=== PATIENT | female | born 1965 | race Caucasian/White ===

== ENCOUNTER 2016-08-27 18:16 | Inpatient (IN) | payer MEDICAID ==
[~2016-08-27] VITALS: Ht 167.6 cm; Wt 96.1 kg
[~2016-08-27 18:16] MED LIST: IMITREX
[2016-08-27 19:27] LABS: Partial Thromboplastin Time 33.5 sec (22.64-33.71)
[2016-08-27 19:34] LABS: Mean Corpuscular Hemoglobin 29.4 pg (28.0-32.0); SUSPECT VIEW TRANSMISSION; White Blood Cell 3.2 10^3/uL (4.4-10.8)
[2016-08-27] MEDS ORDERED: SODIUM CHLORIDE 0.9% 1,000 ML IVB ONE (19:38)
[2016-08-27 19:40] LABS: Albumin 2.3 g/dL (3.4-5.0); Alkaline Phosphatase 61 U/L (45-117); Anion Gap 14 (5-15); Aspartate Aminotransferase 57 U/L (15-37); BUN/Creatinine Ratio 24.8; Bilirubin, Total 2.2 mg/dL (0.2-1.0); Blood Urea Nitrogen 34 mg/dL (7-18); Carbon Dioxide 22 mmol/L (21-32); Chloride 102 mmol/L (98-107); GFR African American 52 mL/min; GFR Non-African American 43 mL/min; Glucose 105 mg/dL (74-106); Lactic Acid 4.4 mmol/L (0.4-2.0); Potassium 3.9 mmol/L (3.5-5.1); Sodium 138 mmol/L (136-145); Total Protein 7.8 g/dL (6.4-8.2)
[2016-08-27 19:42] LABS: REFLEX LACTIC ACID YES OR NO YES
[2016-08-27 19:43] LABS: Hemoglobin 14.3 g/dL (12.2-16.2); Mean Corpuscular Hgb Conc. 34.1 g/dL (32.0-36.0); Mean Corpuscular Volume 86.1 fL (80.0-100.0); Mean Platelet Volume 11.2 fL (7.4-10.4); Platelet Count (auto) 97 10^3/uL (140-450); Red Cell Distribution Width 15.8 % (11.6-16.0)
[2016-08-27 19:45] LABS: Metamyelocytes % 0; Myelocytes % 0; Promyelocytes % 0; Reactive Lymphocytes 0
[2016-08-27] MEDS ORDERED: KETOROLAC TROMETH 30 MG/ML 1ML VIAL IV ONE (19:45)
[2016-08-27] MEDS ORDERED: cefTRIAXone 1GM/50ML D5W 50 ML IV ONE (19:45)
[2016-08-27 20:05] LABS: Platelet Estimate Decreased
[2016-08-27 20:09] LABS: Polychromasia Slight
[2016-08-27 20:10] LABS: Giant Platelets Few
[2016-08-27 20:21] LABS: INR 1.52 (0.9-1.15); Prothrombin Time 15.7 sec (9.37-12.3)
[2016-08-27 21:41] LABS: REFLEX LACTIC ACID YES OR NO NO
[2016-08-28] VITALS (8 sets, daily range): BP systolic 80–105; BP diastolic 40–64
[2016-08-28] MEDS ORDERED: MORPHINE SULF INJ 2 MG/ML SYRINGE 1ML ONE (00:07)
[2016-08-28] MEDS ORDERED: HYDROcodone-ACET 5/325MG TAB PO PRN ×2 (00:15)
[2016-08-28] MEDS ORDERED: ONDANSETRON HCL 4 MG/2 ML VIAL IV PRN ×3 (00:15)
[2016-08-28] MEDS ORDERED: MORPHINE SULF INJ 2 MG/ML SYRINGE 1ML IV PRN ×2 (00:15)
[2016-08-28] MEDS ORDERED: ACETAMINOPHEN 325 MG TAB PO PRN ×3 (00:15)
[2016-08-28] MEDS ORDERED: TEMAZEPAM 15 MG CAP PO PRN ×3 (00:15)
[2016-08-28] MEDS ORDERED: AZITHROMYCIN 500MG/D5W 250ML 250 ML IV ONE ×3 (00:15)
[2016-08-28] MEDS ORDERED: LISI2.5T47 PO (01:29)
[2016-08-28] MEDS ORDERED: methylPREDNISolone SOD SUCC 125 MG/2 ML VL IV ONE (04:45)
[2016-08-28] MEDS ORDERED: methylPREDNISolone SOD SUCC 125 MG/2 ML VL IM ONE (05:45)
[2016-08-28] MEDS: IPRATROPIUM BROM 0.5 MG/2.5ML INH SOL NEB PRN ×3 (07:41→14:30)
[2016-08-28] MEDS: ALBUTEROL SULF 2.5 MG/0.5ML(0.5%) NEB SOLN NEB PRN ×3 (07:41→14:30)
[2016-08-28] MEDS ORDERED: cefTRIAXone 1GM/50ML D5W 50 ML IV SCH ×3 (09:00→20:00)
[2016-08-28 09:01] LABS: Urine Blood Negative /uL (Negative); Urine Color Brown (Yellow); Urine Glucose Normal (Normal); Urine Hyaline Cast MOD /lpf (0 - 2); Urine Ketone Negative (Negative); Urine Mucus FEW (None Seen); Urine Nitrite Negative (Negative); Urine RBC 7 /hpf (0 - 4); Urine Squamous Epithelial Cell FEW /hpf (<5); Urine pH 5.5 (5.0-8.0)
[2016-08-28 09:07] LABS: Urine Bilirubin Negative (Negative)
[2016-08-28] MEDS ORDERED: ENOXAPARIN SOD 40 MG/0.4 ML SYRINGE SC SCH ×2 (10:00)
[2016-08-28] MEDS ORDERED: AZITHROMYCIN 500MG/D5W 250ML 250 ML IV SCH ×3 (10:00→22:00)
[2016-08-28] MEDS ORDERED: LISINOPRIL 5 MG TAB PO SCH ×3 (10:00)
[2016-08-28] MEDS ORDERED: SILVER SULFADIAZINE 1 % TOPICAL CREAM 50GM TOP SCH ×2 (10:00)
[2016-08-28] MEDS ORDERED: HCTZ 25 MG TAB PO SCH ×3 (10:00)
[2016-08-28] MEDS ORDERED: FAMOTIDINE 20 MG TAB PO SCH ×2 (10:00)
[2016-08-28] MEDS: ENOXAPARIN SOD 40 MG/0.4 ML SYRINGE SC SCH ×2 (10:00→11:05)
[2016-08-28] MEDS: SILVER SULFADIAZINE 1 % TOPICAL CREAM 50GM TOP SCH (11:05)
[2016-08-28] MEDS: FAMOTIDINE 20 MG TAB PO SCH ×2 (11:06→22:00)
[2016-08-28] MEDS: MORPHINE SULF INJ 2 MG/ML SYRINGE 1ML IV PRN ×2 (11:21→20:30)
[2016-08-28] MEDS ORDERED: VANCOMYCIN 1GM/250ML D5W 250 ML IV ONE (13:15)
[2016-08-28] MEDS ORDERED: VANCOMYCIN PER PHARMACY 0 MG IV SCH (13:15)
[2016-08-28] MEDS: LEVOFLOXACIN 500MG 100 ML IV SCH (13:36)
[2016-08-28] MEDS: SODIUM CHLORIDE 0.9% 1,000 ML IV SCH ×2 (13:37→23:15)
[2016-08-28] MEDS ORDERED: SODIUM CHLORIDE 0.9% 2,000 ML IV ONE (14:45)
[2016-08-28] MEDS ORDERED: VANCOMYCIN 1,250 MG in D5W 5% 250 ML IV SCH (15:00)
[2016-08-28 16:24] LABS: DEFINITIVE VIEW TRANSMISSION; Hematocrit 46.2 % (36.0-46.0); Hemoglobin 15.1 g/dL (12.2-16.2); Mean Corpuscular Hemoglobin 29.3 pg (28.0-32.0); Mean Corpuscular Hgb Conc. 32.8 g/dL (32.0-36.0); Mean Corpuscular Volume 89.4 fL (80.0-100.0); Mean Platelet Volume 11.3 fL (7.4-10.4); Platelet Count (auto) 43 10^3/uL (140-450); Red Cell Distribution Width 17.2 % (11.6-16.0); SUSPECT VIEW TRANSMISSION; White Blood Cell 7.3 10^3/uL (4.4-10.8)
[2016-08-28 16:34] LABS: Calcium 7.5 mg/dL (8.5-10.1); Potassium 4.2 mmol/L (3.5-5.1)
[2016-08-28 16:37] LABS: BUN/Creatinine Ratio 26.5
[2016-08-28 16:45] LABS: Metamyelocytes % 0; Myelocytes % 0; Promyelocytes % 0; Reactive Lymphocytes 0
[2016-08-28 17:26] LABS: Platelet Estimate Decreased
[2016-08-28 17:29] LABS: Ovalocytes FEW
[2016-08-28] MEDS: VANCOMYCIN 1,250 MG in D5W 5% 250 ML IV SCH (18:00)
[2016-08-29] VITALS: BP 112/66
[2016-08-29] MEDS: ALBUTEROL SULF 2.5 MG/0.5ML(0.5%) NEB SOLN NEB PRN ×2 (00:38→11:04)
[2016-08-29] MEDS: IPRATROPIUM BROM 0.5 MG/2.5ML INH SOL NEB SCH ×4 (00:38→18:10)
[2016-08-29] MEDS: MORPHINE SULF INJ 2 MG/ML SYRINGE 1ML IV PRN ×4 (02:40→20:37)
[2016-08-29 04:00] VITALS: BP 111/60
[2016-08-29 07:42] LABS: Partial Thromboplastin Time 40.9 sec (22.64-33.71)
[2016-08-29 07:51] LABS: INR 1.51 (0.9-1.15); Prothrombin Time 15.6 sec (9.37-12.3)
[2016-08-29 07:53] LABS: DEFINITIVE VIEW TRANSMISSION; Hematocrit 37.7 % (36.0-46.0); Hemoglobin 12.8 g/dL (12.2-16.2); Mean Corpuscular Hemoglobin 29.3 pg (28.0-32.0); Mean Corpuscular Hgb Conc. 33.8 g/dL (32.0-36.0); Mean Corpuscular Volume 86.7 fL (80.0-100.0); Mean Platelet Volume 11.9 fL (7.4-10.4); Platelet Count (auto) 65 10^3/uL (140-450); Red Cell Distribution Width 16.3 % (11.6-16.0); SUSPECT VIEW TRANSMISSION; White Blood Cell 12.7 10^3/uL (4.4-10.8)
[2016-08-29 07:58] LABS: Metamyelocytes % 0; Myelocytes % 0; Promyelocytes % 0; Reactive Lymphocytes 0
[2016-08-29 08:00] VITALS: BP 117/74
[2016-08-29 08:01] LABS: Albumin 1.8 g/dL (3.4-5.0); BUN/Creatinine Ratio 41.4; Bilirubin, Total 1.1 mg/dL (0.2-1.0); Calcium 8.3 mg/dL (8.5-10.1); Magnesium 2.1 mg/dL (1.6-2.6); Total Protein 6.9 g/dL (6.4-8.2)
[2016-08-29] MEDS ORDERED: SODIUM CHLORIDE 0.9% 1,000 ML IV ONE (10:00)
[2016-08-29] MEDS: LISINOPRIL 5 MG TAB PO SCH (10:00)
[2016-08-29] MEDS: ENOXAPARIN SOD 40 MG/0.4 ML SYRINGE SC SCH (10:00)
[2016-08-29 10:09] LABS: Giant Platelets Few; Large Platelets FEW; Ovalocytes FEW; Platelet Estimate Decreased
[2016-08-29] MEDS: FAMOTIDINE 20 MG TAB PO SCH ×2 (10:09→22:46)
[2016-08-29] MEDS: LEVOFLOXACIN 500MG 100 ML IV SCH (10:10)
[2016-08-29] MEDS: MUPIROCIN 2% OINT 22GM EACHNOSTRI SCH ×2 (10:12→22:00)
[2016-08-29] MEDS: SILVER SULFADIAZINE 1 % TOPICAL CREAM 50GM TOP SCH (10:13)
[2016-08-29] MEDS: SODIUM CHLORIDE 0.9% 1,000 ML IV SCH ×2 (11:00→20:00)
[2016-08-29 12:00] VITALS: BP 105/66
[2016-08-29] MEDS ORDERED: PHYTONADIONE ORAL Susp 10 mg/10ml PO ONE (13:45)
[2016-08-29] MEDS: guaiFENesin-DEXTROMETHORPHAN 5ML SYR PO PRN (14:36)
[2016-08-29 16:00] VITALS: BP 113/74
[2016-08-29] MEDS: VANCOMYCIN 1,250 MG in D5W 5% 250 ML IV SCH (16:52)
[2016-08-29 20:00] VITALS: BP 113/71
[2016-08-30] VITALS: BP 111/73
[2016-08-30] MEDS: HYDROcodone-ACET 5/325MG TAB PO PRN ×4 (00:42→22:00)
[2016-08-30 04:00] VITALS: BP 100/68
[2016-08-30] MEDS: SODIUM CHLORIDE 0.9% 1,000 ML IV SCH ×2 (06:00→16:00)
[2016-08-30] MEDS: guaiFENesin-DEXTROMETHORPHAN 5ML SYR PO PRN ×2 (06:34→12:54)
[2016-08-30] MEDS: ALBUTEROL SULF 2.5 MG/0.5ML(0.5%) NEB SOLN NEB PRN ×4 (06:55→23:50)
[2016-08-30] MEDS: IPRATROPIUM BROM 0.5 MG/2.5ML INH SOL NEB SCH ×4 (06:55→23:50)
[2016-08-30 09:02] LABS: Hematocrit 37.3 % (36.0-46.0); Hemoglobin 12.3 g/dL (12.2-16.2); Mean Corpuscular Hemoglobin 28.8 pg (28.0-32.0); Mean Corpuscular Volume 87.2 fL (80.0-100.0); Mean Platelet Volume 10.6 fL (7.4-10.4); Partial Thromboplastin Time 37.6 sec (22.64-33.71); Platelet Count (auto) 91 10^3/uL (140-450); Red Cell Distribution Width 16.4 % (11.6-16.0); SUSPECT VIEW TRANSMISSION; White Blood Cell 10.8 10^3/uL (4.4-10.8)
[2016-08-30 09:06] LABS: INR 1.37 (0.9-1.15); Prothrombin Time 14.1 sec (9.37-12.3)
[2016-08-30 09:11] LABS: BUN/Creatinine Ratio 55.6; Metamyelocytes % 0; Myelocytes % 0; Potassium 3.6 mmol/L (3.5-5.1); Promyelocytes % 0; Reactive Lymphocytes 0
[2016-08-30 09:20] LABS: Platelet Estimate Decreased
[2016-08-30 09:21] LABS: RBC Morphology Normal
[2016-08-30] MEDS: LISINOPRIL 5 MG TAB PO SCH (10:00)
[2016-08-30] MEDS: SILVER SULFADIAZINE 1 % TOPICAL CREAM 50GM TOP SCH (10:00)
[2016-08-30] MEDS: MUPIROCIN 2% OINT 22GM EACHNOSTRI SCH ×2 (10:12→22:00)
[2016-08-30] MEDS: FAMOTIDINE 20 MG TAB PO SCH ×2 (10:12→22:00)
[2016-08-30] MEDS: ENOXAPARIN SOD 40 MG/0.4 ML SYRINGE SC SCH (10:13)
[2016-08-30] MEDS: LEVOFLOXACIN 500MG 100 ML IV SCH (10:13)
[2016-08-30 16:00] VITALS: BP 101/71
[2016-08-30] MEDS ORDERED: FLUCONAZOLE 200MG/100ML 100 ML IV SCH (17:15)
[2016-08-30] MEDS: VANCOMYCIN 1,250 MG in D5W 5% 250 ML IV SCH (17:30)
[2016-08-30] MEDS ORDERED: ERTAPENEM SOD INJ 1 GM in SODIUM CHL 0.9% 50 ML IV SCH (18:30)
[2016-08-30 20:00] VITALS: BP 115/76
[2016-08-30] MEDS: FLUCONAZOLE 200MG/100ML 100 ML IV SCH (21:21)
[2016-08-30] MEDS: MEROPENEM 1GM IVPB 100 ML IV SCH (22:00)
[2016-08-31] VITALS (7 sets, daily range): BP systolic 103–139; BP diastolic 68–81
[2016-08-31] MEDS: SODIUM CHLORIDE 0.9% 1,000 ML IV SCH ×2 (02:00→09:49)
[2016-08-31] MEDS: guaiFENesin-DEXTROMETHORPHAN 5ML SYR PO PRN (03:30)
[2016-08-31] MEDS: HYDROcodone-ACET 5/325MG TAB PO PRN (03:30)
[2016-08-31] MEDS: MEROPENEM 1GM IVPB 100 ML IV SCH ×2 (06:50→13:33)
[2016-08-31] MEDS: IPRATROPIUM BROM 0.5 MG/2.5ML INH SOL NEB SCH ×2 (07:42→11:58)
[2016-08-31] MEDS: ALBUTEROL SULF 2.5 MG/0.5ML(0.5%) NEB SOLN NEB PRN (07:42)
[2016-08-31] MEDS: MUPIROCIN 2% OINT 22GM EACHNOSTRI SCH (09:49)
[2016-08-31] MEDS: SILVER SULFADIAZINE 1 % TOPICAL CREAM 50GM TOP SCH (09:49)
[2016-08-31] MEDS: FLUCONAZOLE 200MG/100ML 100 ML IV SCH (09:49)
[2016-08-31] MEDS: FAMOTIDINE 20 MG TAB PO SCH (09:49)
[2016-08-31] MEDS: ENOXAPARIN SOD 40 MG/0.4 ML SYRINGE SC SCH (09:49)
[2016-08-31] MEDS: LISINOPRIL 5 MG TAB PO SCH (09:51)
[2016-08-31 17:26] LABS: Basophils # (auto) 0 uL; Basophils % (auto) 0.2 % (0.0-2.0); Eosinophils # (auto) 0 uL; Eosinophils % (auto) 0.5 % (0.0-7.0); Hematocrit 38.3 % (36.0-46.0); Hemoglobin 12.6 g/dL (12.2-16.2); Lymphocytes # (auto) 0.7 uL; Lymphocytes % (auto) 7.5 % (10.0-50.0); Mean Corpuscular Hemoglobin 28.7 pg (28.0-32.0); Mean Corpuscular Hgb Conc. 32.9 g/dL (32.0-36.0); Mean Corpuscular Volume 87.3 fL (80.0-100.0); Monocytes # (auto) 0.7 uL; Monocytes % (auto) 7.7 % (0.0-12.0); Neutrophils # (auto) 7.6 uL; Neutrophils % (auto) 84.1 % (37.0-80.0); Platelet Count (auto) 85 10^3/uL (140-450); Red Cell Distribution Width 16.1 % (11.6-16.0); SUSPECT VIEW TRANSMISSION
[2016-08-31 17:42] LABS: Albumin 1.6 g/dL (3.4-5.0); BUN/Creatinine Ratio 35.6; Calcium 7.1 mg/dL (8.5-10.1); Potassium 3.7 mmol/L (3.5-5.1)
[2016-08-31 17:44] LABS: Bilirubin, Total 0.7 mg/dL (0.2-1.0); Total Protein 6.1 g/dL (6.4-8.2)
[2016-08-31] MEDS: VANCOMYCIN 1,250 MG in D5W 5% 250 ML IV SCH (19:00)
[2016-09-01] MEDS ORDERED: VANCOMYCIN 1,250 MG in D5W 5% 250 ML IV SCH (05:00)
[2016-09-01 14:28] LABS: Bilirubin, Direct 0.5 mg/dL (0-0.2)
== END 2016-08-31 20:37 | DRG 710 ==
LOC: ER 18:19 → TELE 18:20 → ER 08-28 → EAST 08-28 01:00 → DOU IN ICU 08-28 16:18
PROVIDERS: ADMIT Nurse Practitioner; ATTEND Internal Medicine
PROC: 02H633Z Insertion of Infusion Device into Right Atrium, Percutaneous Approach (ICD-10-PCS; principal; 2016-08-27)
DX: A40.9 Streptococcal sepsis, unspecified (principal); E43 Unspecified severe protein-calorie malnutrition; N17.9 Acute kidney failure, unspecified; J15.4 Pneumonia due to other streptococci; D70.9 Neutropenia, unspecified; C34.90 Malignant neoplasm of unspecified part of unspecified bronchus or lung; D69.6 Thrombocytopenia, unspecified; L03.115 Cellulitis of right lower limb; L03.116 Cellulitis of left lower limb; J44.9 Chronic obstructive pulmonary disease, unspecified; S81.802D Unspecified open wound, left lower leg, subsequent encounter; R53.81 Other malaise; I10 Essential (primary) hypertension; F17.210 Nicotine dependence, cigarettes, uncomplicated; B95.3 Streptococcus pneumoniae as the cause of diseases classified elsewhere; F41.9 Anxiety disorder, unspecified; R65.20 Severe sepsis without septic shock; S81.801D Unspecified open wound, right lower leg, subsequent encounter; Z22.322 Carrier or suspected carrier of Methicillin resistant Staphylococcus aureus; Z81.8 Family history of other mental and behavioral disorders; Z88.0 Allergy status to penicillin; F15.90 Other stimulant use, unspecified, uncomplicated; K75.9 Inflammatory liver disease, unspecified; Z90.89 Acquired absence of other organs; R91.8 Other nonspecific abnormal finding of lung field; Z81.1 Family history of alcohol abuse and dependence; Z80.9 Family history of malignant neoplasm, unspecified; Z68.34 Body mass index [BMI] 34.0-34.9, adult; Z90.49 Acquired absence of other specified parts of digestive tract; Z88.1 Allergy status to other antibiotic agents; Z88.2 Allergy status to sulfonamides; B96.20 Unspecified Escherichia coli [E. coli] as the cause of diseases classified elsewhere; B96.5 Pseudomonas (aeruginosa) (mallei) (pseudomallei) as the cause of diseases classified elsewhere; B95.62 Methicillin resistant Staphylococcus aureus infection as the cause of diseases classified elsewhere; B95.2 Enterococcus as the cause of diseases classified elsewhere
CPT/HCPCS: 36415; 36569; 71010; 71250; 80048; 80053; 80076; 80202; 81001; 83605; 83735; 84484; 85007; 85025; 85027; 85610; 85730; 87040; 87070; 87077; 87081; 87186; 87205; 93005; 94640; 94761; 96365; 96366; 96375; J0696; J1335; J1450; J1885; J1956; J2185; J7060

== ENCOUNTER 2018-03-28 18:01 | Inpatient (IN) | payer MEDICAID ==
[~2018-03-28] VITALS: Ht 165.1 cm; Wt 90.8 kg
[~2018-03-28 18:01] MED LIST changes: +LISI2.5T47 PO
[2018-03-28] MEDS ORDERED: ONDANSETRON HCL 4 MG/2 ML VIAL IV ONE (20:15)
[2018-03-28] MEDS ORDERED: MORPHINE SULFATE 4 MG/ML SYR/VIAL IV ONE (20:15)
[2018-03-28] MEDS ORDERED: LIDOCAINE 1% HCL (LOCAL ANESTH.) INJ 20ML MDV ONE (21:28)
[2018-03-28] MEDS ORDERED: VANCOMYCIN 1GM/250ML 250 ML IV ONE (21:45)
[2018-03-28] MEDS ORDERED: cefTRIAXone 1GM/50ML D5W 50 ML IV ONE (21:45)
[2018-03-28] MEDS ORDERED: HYDROmorphone HCL 2 MG/ML VL IV ONE (21:45)
[2018-03-28] MEDS ORDERED: SODIUM CHLORIDE 0.9% 1,000 ML IV ONE (22:00)
[2018-03-28 22:17] LABS: Basophils # (auto) 0 uL; Basophils % (auto) 0.5 % (0.0-2.0); Eosinophils # (auto) 0.1 uL; Monocytes # (auto) 0.5 uL; Platelet Count (auto) 72 10^3/uL (140-450); White Blood Cell 7.7 10^3/uL (4.4-10.8)
[2018-03-28 22:27] LABS: Eosinophils % (auto) 1.7 % (0.0-7.0); Hematocrit 27.9 % (36.0-46.0); Hemoglobin 9.7 g/dL (12.2-16.2); Lymphocytes # (auto) 0.9 uL; Lymphocytes % (auto) 11.4 % (10.0-50.0); Mean Corpuscular Hgb Conc. 34.9 g/dL (32.0-36.0); Mean Corpuscular Volume 94.6 fL (80.0-100.0); Monocytes % (auto) 6.7 % (0.0-12.0); Neutrophils # (auto) 6.1 uL; Neutrophils % (auto) 79.7 % (37.0-80.0); Red Blood Cells 2.95 10^6/uL (4.0-5.20); Red Cell Distribution Width 14.7 % (11.8-14.3)
[2018-03-28 22:34] LABS: Alanine Aminotransferase 24 U/L (13-56); Albumin 1.8 g/dL (3.4-5.0); Anion Gap 9 (5-15); Aspartate Aminotransferase 34 U/L (15-37); BUN/Creatinine Ratio 19.7; Blood Urea Nitrogen 12 mg/dL (7-18); Calcium 6.8 mg/dL (8.5-10.1); Carbon Dioxide 24 mmol/L (21-32); Chloride 111 mmol/L (98-107); GFR African American 131 mL/min; GFR Non-African American 109 mL/min; Glucose 86 mg/dL (74-106); Magnesium 1.8 mg/dL (1.6-2.6); Potassium 3.6 mmol/L (3.5-5.1); Sodium 144 mmol/L (136-145)
[2018-03-28 22:38] LABS: Alkaline Phosphatase 74 U/L (45-117); Bilirubin, Total 1.3 mg/dL (0.2-1.0); Total Protein 6.2 g/dL (6.4-8.2)
[2018-03-29] VITALS (33 sets, daily range): BP systolic 80–110; BP diastolic 29–72
[2018-03-29] MEDS ORDERED: MORPHINE SULFATE 4 MG/ML SYR/VIAL IV PRN (00:45)
[2018-03-29] MEDS ORDERED: NITROGLYCERIN 0.4 MG SL TAB SL PRN (00:45)
[2018-03-29] MEDS ORDERED: ALBUMIN 5% 250 ML IV ONE (00:45)
[2018-03-29] MEDS ORDERED: HYDROmorphone HCL 2 MG/ML VL IV ONE (00:45)
[2018-03-29 00:46] LABS: Hematocrit 28.2 % (36.0-46.0); Hemoglobin 9.5 g/dL (12.2-16.2)
[2018-03-29] MEDS: SODIUM CHLORIDE 0.9% 1,000 ML IV SCH ×2 (01:11→11:30)
[2018-03-29 03:33] LABS: Urine Bacteria NONE SEEN /hpf (None Seen); Urine Blood 1+ /uL (Negative); Urine Hyaline Cast FEW /lpf (0 - 2); Urine Mucus FEW (None Seen); Urine WBC 3 /hpf (0 - 5)
[2018-03-29] MEDS ORDERED: VANCOMYCIN PER PHARMACY 0 MG IV SCH (07:45)
[2018-03-29] MEDS ORDERED: PIPERACILLIN-TAZOB 3.375GM 100 ML IV ONE (08:15)
[2018-03-29 09:29] LABS: Basophils # (auto) 0.1 uL; Basophils % (auto) 0.8 % (0.0-2.0); Eosinophils # (auto) 0.2 uL; Hematocrit 23.9 % (36.0-46.0); Hemoglobin 8.1 g/dL (12.2-16.2); Lymphocytes # (auto) 1.1 uL; Monocytes # (auto) 0.6 uL; Nucleated Red Blood Cells % 0.1 %
[2018-03-29 09:31] LABS: Eosinophils % (auto) 3.6 % (0.0-7.0); Lymphocytes % (auto) 17.2 % (10.0-50.0); Mean Corpuscular Hemoglobin 32.3 pg (28.0-32.0); Mean Corpuscular Volume 95.1 fL (80.0-100.0); Monocytes % (auto) 9.6 % (0.0-12.0); Neutrophils # (auto) 4.4 uL; Neutrophils % (auto) 68.8 % (37.0-80.0); Platelet Count (auto) 81 10^3/uL (140-450); Red Blood Cells 2.51 10^6/uL (4.0-5.20); Red Cell Distribution Width 15.4 % (11.8-14.3); White Blood Cell 6.4 10^3/uL (4.4-10.8)
[2018-03-29 09:36] LABS: BUN/Creatinine Ratio 20.3; Calcium 6.7 mg/dL (8.5-10.1); Magnesium 1.8 mg/dL (1.6-2.6); Potassium 3.5 mmol/L (3.5-5.1)
[2018-03-29 09:38] LABS: INR 1.37 (0.9-1.15); Partial Thromboplastin Time 32.9 sec (23.78-33.04); Prothrombin Time 14.4 sec (9.27-12.13)
[2018-03-29] MEDS: VANCOMYCIN 1GM/250ML 250 ML IV SCH ×2 (09:46→23:09)
[2018-03-29] MEDS: PANTOPRAZOLE 40 MG/10 ML VIAL IV SCH (09:46)
[2018-03-29] MEDS: HYDROmorphone HCL 2 MG/ML VL IV PRN ×2 (14:58→22:11)
[2018-03-29] MEDS: PIPERACILLIN-TAZOB 3.375GM 100 ML IV SCH ×2 (15:00→21:04)
[2018-03-29 19:17] LABS: Alcohol, Urine < 3.0 mg/dL (0-5); Amphetamine Screen, Urine POSITIVE (NEGATIVE); Barbiturate Scree,Urine NEGATIVE (NEGATIVE); Benzodiazephine Screen, Urine NEGATIVE (NEGATIVE); Cannabinoid Screen, Urine NEGATIVE (NEGATIVE); Cocaine Screen, Urine NEGATIVE (NEGATIVE); Opiate Scree,Urine POSITIVE (NEGATIVE); Phencyclidine Screen, Urine NEGATIVE (NEGATIVE)
[2018-03-29] MEDS ORDERED: INFLUENZA QUAD 2018-2019 0.5 ML SYRG IM ONE (20:00)
[2018-03-30] VITALS (15 sets, daily range): BP systolic 89–112; BP diastolic 39–68
[2018-03-30] MEDS: SODIUM CHLORIDE 0.9% 1,000 ML IV SCH ×3 (00:30→15:28)
[2018-03-30 01:09] LABS: Hemoglobin 7.9 g/dL (12.2-16.2)
[2018-03-30 01:11] LABS: Hematocrit 23.1 % (36.0-46.0)
[2018-03-30] MEDS: HYDROmorphone HCL 2 MG/ML VL IV PRN ×4 (03:01→20:34)
[2018-03-30] MEDS: PIPERACILLIN-TAZOB 3.375GM 100 ML IV SCH ×4 (03:04→21:00)
[2018-03-30 05:54] LABS: Basophils # (auto) 0.1 uL; Eosinophils # (auto) 0.2 uL; Hemoglobin 8.1 g/dL (12.2-16.2); Lymphocytes # (auto) 0.8 uL; Monocytes # (auto) 0.4 uL; White Blood Cell 3.7 10^3/uL (4.4-10.8)
[2018-03-30 05:58] LABS: Basophils % (auto) 3.3 % (0.0-2.0); Eosinophils % (auto) 5.5 % (0.0-7.0); Hematocrit 22.8 % (36.0-46.0); Lymphocytes % (auto) 20.8 % (10.0-50.0); Mean Corpuscular Hgb Conc. 35.8 g/dL (32.0-36.0); Mean Corpuscular Volume 92.3 fL (80.0-100.0); Monocytes % (auto) 10.5 % (0.0-12.0); Neutrophils # (auto) 2.2 uL; Neutrophils % (auto) 59.9 % (37.0-80.0); Red Blood Cells 2.47 10^6/uL (4.0-5.20); Red Cell Distribution Width 16.1 % (11.8-14.3)
[2018-03-30 05:59] LABS: Platelet Count (auto) 82 10^3/uL (140-450)
[2018-03-30 06:06] LABS: INR 1.2 (0.9-1.15); Prothrombin Time 12.7 sec (9.27-12.13)
[2018-03-30 06:23] LABS: Albumin 1.9 g/dL (3.4-5.0); Calcium 6.9 mg/dL (8.5-10.1)
[2018-03-30 06:26] LABS: Bilirubin, Total 1.4 mg/dL (0.2-1.0); Total Protein 6.2 g/dL (6.4-8.2)
[2018-03-30] MEDS ORDERED: PNEUMOCOCCAL VACC POLYS 25 MCG/0.5 ML VIAL IM ONE (08:00)
[2018-03-30] MEDS: VANCOMYCIN 1GM/250ML 250 ML IV SCH (09:59)
[2018-03-30] MEDS: PANTOPRAZOLE 40 MG/10 ML VIAL IV SCH (09:59)
[2018-03-30] MEDS: NICOTINE 14 MG/24HR TOPICAL PATCH TD SCH (15:28)
[2018-03-31] VITALS (10 sets, daily range): BP systolic 95–109; BP diastolic 59–73
[2018-03-31] MEDS: HYDROmorphone HCL 2 MG/ML VL IV PRN ×4 (00:20→19:28)
[2018-03-31] MEDS: VANCOMYCIN 1GM/250ML 250 ML IV SCH ×3 (00:47→10:16)
[2018-03-31] MEDS: SODIUM CHLORIDE 0.9% 1,000 ML IV SCH ×3 (02:45→22:54)
[2018-03-31] MEDS: MORPHINE SULFATE 4 MG/ML SYR/VIAL IV PRN (02:49)
[2018-03-31] MEDS: ONDANSETRON HCL 4 MG/2 ML VIAL IV PRN (02:49)
[2018-03-31] MEDS: PIPERACILLIN-TAZOB 3.375GM 100 ML IV SCH ×2 (03:07→09:43)
[2018-03-31 05:57] LABS: Basophils # (auto) 0 uL; Eosinophils # (auto) 0.2 uL; Hematocrit 22.6 % (36.0-46.0); Lymphocytes # (auto) 0.5 uL; Monocytes # (auto) 0.3 uL; Neutrophils # (auto) 1.3 uL; Red Blood Cells 2.43 10^6/uL (4.0-5.20)
[2018-03-31 06:01] LABS: Basophils % (auto) 1.2 % (0.0-2.0); Eosinophils % (auto) 7.2 % (0.0-7.0); Lymphocytes % (auto) 21.5 % (10.0-50.0); Mean Corpuscular Hemoglobin 32.8 pg (28.0-32.0); Mean Corpuscular Hgb Conc. 35.3 g/dL (32.0-36.0); Mean Corpuscular Volume 92.9 fL (80.0-100.0); Monocytes % (auto) 11.9 % (0.0-12.0); Neutrophils % (auto) 58.2 % (37.0-80.0); Nucleated Red Blood Cells % 0.1 %; Platelet Count (auto) 61 10^3/uL (140-450); Red Cell Distribution Width 15.8 % (11.8-14.3); White Blood Cell 2.3 10^3/uL (4.4-10.8)
[2018-03-31 06:04] LABS: INR 1.23 (0.9-1.15); Partial Thromboplastin Time 29.7 sec (23.78-33.04)
[2018-03-31 08:16] LABS: BUN/Creatinine Ratio 12.5; Calcium 7.4 mg/dL (8.5-10.1); Potassium 3.6 mmol/L (3.5-5.1)
[2018-03-31] MEDS: PANTOPRAZOLE 40 MG/10 ML VIAL IV SCH (09:43)
[2018-03-31] MEDS: NICOTINE 14 MG/24HR TOPICAL PATCH TD SCH (09:44)
[2018-03-31] MEDS ORDERED: LIDOCAINE 1% (LOCAL ANESTH.) PF 5ml SDV ID ONE (14:30)
[2018-03-31] MEDS: CEFEPIME HYDROCHLORIDE 2 GM in SODIUM CHL 0.9% 50 ML IV SCH ×2 (14:39→22:26)
[2018-03-31] MEDS: VANCOMYCIN 1,500 MG in D5W 5% 250 ML IV SCH (22:25)
[2018-03-31] MEDS: SODIUM CHLOR 0.9% PF (SALINE LOCK) 10ML VIAL/SYR IV SCH (22:26)
[2018-04-01] MEDS: HYDROmorphone HCL 2 MG/ML VL IV PRN ×5 (00:02→21:00)
[2018-04-01] MEDS: MORPHINE SULFATE 4 MG/ML SYR/VIAL IV PRN ×2 (02:54→23:22)
[2018-04-01] MEDS: ONDANSETRON HCL 4 MG/2 ML VIAL IV PRN ×2 (02:57→23:22)
[2018-04-01 05:11] VITALS: BP 113/68
[2018-04-01] MEDS: CEFEPIME HYDROCHLORIDE 2 GM in SODIUM CHL 0.9% 50 ML IV SCH ×3 (05:59→21:40)
[2018-04-01 06:20] LABS: Basophils # (auto) 0 uL; Eosinophils # (auto) 0.2 uL; Lymphocytes # (auto) 0.5 uL; Monocytes # (auto) 0.2 uL; Neutrophils # (auto) 1.4 uL; White Blood Cell 2.3 10^3/uL (4.4-10.8)
[2018-04-01 06:22] LABS: Basophils % (auto) 1.5 % (0.0-2.0); Eosinophils % (auto) 6.5 % (0.0-7.0); Hematocrit 23.8 % (36.0-46.0); Hemoglobin 8.3 g/dL (12.2-16.2); Lymphocytes % (auto) 19.8 % (10.0-50.0); Mean Corpuscular Hemoglobin 32.9 pg (28.0-32.0); Mean Corpuscular Hgb Conc. 34.8 g/dL (32.0-36.0); Mean Corpuscular Volume 94.6 fL (80.0-100.0); Monocytes % (auto) 10.6 % (0.0-12.0); Neutrophils % (auto) 61.6 % (37.0-80.0); Nucleated Red Blood Cells % 0.3 %; Platelet Count (auto) 59 10^3/uL (140-450); Red Blood Cells 2.52 10^6/uL (4.0-5.20); Red Cell Distribution Width 15.3 % (11.8-14.3)
[2018-04-01 06:39] LABS: BUN/Creatinine Ratio 10.1; Calcium 7.4 mg/dL (8.5-10.1); Magnesium 1.8 mg/dL (1.6-2.6); Phosphorus 3.2 mg/dL (2.5-4.90); Potassium 3.8 mmol/L (3.5-5.1)
[2018-04-01] MEDS: SODIUM CHLORIDE 0.9% 1,000 ML IV SCH (08:45)
[2018-04-01 09:00] VITALS: BP 105/63
[2018-04-01] MEDS: PANTOPRAZOLE 40 MG/10 ML VIAL IV SCH (09:57)
[2018-04-01] MEDS: SODIUM CHLOR 0.9% PF (SALINE LOCK) 10ML VIAL/SYR IV SCH ×2 (09:57→22:06)
[2018-04-01] MEDS: NICOTINE 14 MG/24HR TOPICAL PATCH TD SCH (09:58)
[2018-04-01] MEDS: VANCOMYCIN 1,500 MG in D5W 5% 250 ML IV SCH ×2 (10:02→22:41)
[2018-04-01 13:00] VITALS: BP 112/72
[2018-04-01 16:58] VITALS: BP 100/74
[2018-04-01] MEDS: Pro-Stat SF 30ml Vanilla PO SCH (18:00)
[2018-04-01 22:00] VITALS: BP 115/74
[2018-04-02] MEDS: HYDROmorphone HCL 2 MG/ML VL IV PRN ×7 (00:25→21:06)
[2018-04-02] MEDS: ONDANSETRON HCL 4 MG/2 ML VIAL IV PRN (04:31)
[2018-04-02] MEDS: MORPHINE SULFATE 4 MG/ML SYR/VIAL IV PRN (04:31)
[2018-04-02 05:00] VITALS: BP 91/61
[2018-04-02] MEDS: CEFEPIME HYDROCHLORIDE 2 GM in SODIUM CHL 0.9% 50 ML IV SCH (05:20)
[2018-04-02 06:15] LABS: Basophils # (auto) 0 uL; Basophils % (auto) 0.9 % (0.0-2.0); Eosinophils # (auto) 0.2 uL; Eosinophils % (auto) 5.5 % (0.0-7.0); Hematocrit 25.9 % (36.0-46.0); Hemoglobin 8.9 g/dL (12.2-16.2); Lymphocytes # (auto) 0.5 uL; Mean Corpuscular Hemoglobin 32.9 pg (28.0-32.0); Mean Corpuscular Hgb Conc. 34.6 g/dL (32.0-36.0); Mean Corpuscular Volume 95.1 fL (80.0-100.0); Monocytes # (auto) 0.4 uL; Monocytes % (auto) 11.6 % (0.0-12.0); Neutrophils # (auto) 2.3 uL; Nucleated Red Blood Cells % 0.2 %; Platelet Count (auto) 64 10^3/uL (140-450); Red Blood Cells 2.72 10^6/uL (4.0-5.20); White Blood Cell 3.3 10^3/uL (4.4-10.8)
[2018-04-02 06:29] LABS: BUN/Creatinine Ratio 12.3; Calcium 6.8 mg/dL (8.5-10.1); Magnesium 1.9 mg/dL (1.6-2.6)
[2018-04-02] MEDS: Pro-Stat SF 30ml Vanilla PO SCH ×2 (08:00→17:57)
[2018-04-02] MEDS ORDERED: MEROPENEM 1GM IVPB 100 ML IV SCH (08:30)
[2018-04-02 09:00] VITALS: BP 95/56
[2018-04-02] MEDS: MEROPENEM 1GM IVPB 100 ML IV SCH ×2 (09:00→17:00)
[2018-04-02] MEDS: SODIUM CHLOR 0.9% PF (SALINE LOCK) 10ML VIAL/SYR IV SCH ×2 (09:39→21:06)
[2018-04-02] MEDS: NICOTINE 14 MG/24HR TOPICAL PATCH TD SCH (09:39)
[2018-04-02] MEDS: PANTOPRAZOLE 40 MG/10 ML VIAL IV SCH (09:39)
[2018-04-02] MEDS: VANCOMYCIN 1,500 MG in D5W 5% 250 ML IV SCH ×2 (11:06→21:42)
[2018-04-02 13:00] VITALS: BP 130/69
[2018-04-02 16:54] VITALS: BP 129/61
[2018-04-02 22:00] VITALS: BP 117/76
[2018-04-03] MEDS: HYDROmorphone HCL 2 MG/ML VL IV PRN ×7 (00:02→23:21)
[2018-04-03] MEDS: MEROPENEM 1GM IVPB 100 ML IV SCH ×2 (00:02→08:55)
[2018-04-03] MEDS: MORPHINE SULFATE 4 MG/ML SYR/VIAL IV PRN ×3 (01:41→21:49)
[2018-04-03] MEDS: ONDANSETRON HCL 4 MG/2 ML VIAL IV PRN ×2 (01:42→09:06)
[2018-04-03 05:00] VITALS: BP 97/63
[2018-04-03 07:18] LABS: Basophils # (auto) 0 uL; Eosinophils # (auto) 0.2 uL; Lymphocytes # (auto) 0.7 uL; Mean Corpuscular Hgb Conc. 34.6 g/dL (32.0-36.0); Monocytes # (auto) 0.5 uL; Neutrophils # (auto) 2.4 uL; Nucleated Red Blood Cells % 0.1 %; White Blood Cell 3.8 10^3/uL (4.4-10.8)
[2018-04-03 07:22] LABS: Basophils % (auto) 0.5 % (0.0-2.0); Eosinophils % (auto) 6.1 % (0.0-7.0); Hematocrit 26.9 % (36.0-46.0); Hemoglobin 9.3 g/dL (12.2-16.2); Lymphocytes % (auto) 17.3 % (10.0-50.0); Mean Corpuscular Hemoglobin 32.9 pg (28.0-32.0); Monocytes % (auto) 13.2 % (0.0-12.0); Neutrophils % (auto) 62.9 % (37.0-80.0); Platelet Count (auto) 61 10^3/uL (140-450); Red Blood Cells 2.83 10^6/uL (4.0-5.20); Red Cell Distribution Width 16.7 % (11.8-14.3)
[2018-04-03 07:48] LABS: BUN/Creatinine Ratio 13.8; Calcium 7.5 mg/dL (8.5-10.1); Magnesium 2.1 mg/dL (1.6-2.6); Potassium 3.8 mmol/L (3.5-5.1)
[2018-04-03] MEDS: Pro-Stat SF 30ml Vanilla PO SCH ×2 (08:54→18:25)
[2018-04-03 09:00] VITALS: BP 109/45
[2018-04-03] MEDS ORDERED: cefTAZidime 1 GM in SODIUM CHL 0.9% 50 ML IV SCH ×3 (09:45→12:00)
[2018-04-03] MEDS ORDERED: AMOXICILLIN/CLAVUL 875 MG TAB PO ONE (09:45)
[2018-04-03] MEDS: PANTOPRAZOLE 40 MG/10 ML VIAL IV SCH (10:18)
[2018-04-03] MEDS: SODIUM CHLOR 0.9% PF (SALINE LOCK) 10ML VIAL/SYR IV SCH ×2 (10:19→22:22)
[2018-04-03] MEDS: NICOTINE 14 MG/24HR TOPICAL PATCH TD SCH (10:19)
[2018-04-03] MEDS: VANCOMYCIN 1,500 MG in D5W 5% 250 ML IV SCH ×2 (10:20→21:49)
[2018-04-03] MEDS ORDERED: cefTAZidime 2GM/NS 50 ML IV SCH (11:00)
[2018-04-03 13:02] VITALS: BP 103/68
[2018-04-03] MEDS: cefTAZidime 2GM/NS 50 ML IV SCH ×2 (13:19→19:48)
[2018-04-03 17:07] VITALS: BP 108/70
[2018-04-03 22:00] VITALS: BP 113/68
[2018-04-04 02:23] VITALS: BP 99/72
[2018-04-04] MEDS: HYDROmorphone HCL 2 MG/ML VL IV PRN ×3 (03:13→12:18)
[2018-04-04 03:14] VITALS: BP 111/78
[2018-04-04] MEDS: cefTAZidime 2GM/NS 50 ML IV SCH ×3 (03:37→20:00)
[2018-04-04 05:00] VITALS: BP 106/57
[2018-04-04 09:06] VITALS: BP 97/68
[2018-04-04] MEDS: VANCOMYCIN 1,500 MG in D5W 5% 250 ML IV SCH (10:05)
[2018-04-04] MEDS: Pro-Stat SF 30ml Vanilla PO SCH ×2 (10:05→19:55)
[2018-04-04] MEDS: NICOTINE 14 MG/24HR TOPICAL PATCH TD SCH (10:06)
[2018-04-04] MEDS: SODIUM CHLOR 0.9% PF (SALINE LOCK) 10ML VIAL/SYR IV SCH (10:06)
[2018-04-04] MEDS: PANTOPRAZOLE 40 MG/10 ML VIAL IV SCH (10:06)
[2018-04-04 11:46] LABS: Basophils # (auto) 0 uL; Eosinophils # (auto) 0.2 uL; Hematocrit 27.2 % (36.0-46.0); Hemoglobin 9.3 g/dL (12.2-16.2); Lymphocytes # (auto) 0.6 uL; Lymphocytes % (auto) 19.5 % (10.0-50.0); Mean Corpuscular Hgb Conc. 34.1 g/dL (32.0-36.0); Mean Corpuscular Volume 94.1 fL (80.0-100.0); Monocytes # (auto) 0.5 uL; Monocytes % (auto) 14.6 % (0.0-12.0); Neutrophils # (auto) 1.9 uL; Neutrophils % (auto) 57.9 % (37.0-80.0); Nucleated Red Blood Cells % 0.1 %; Platelet Count (auto) 67 10^3/uL (140-450); Red Blood Cells 2.89 10^6/uL (4.0-5.20); Red Cell Distribution Width 16.7 % (11.8-14.3); White Blood Cell 3.3 10^3/uL (4.4-10.8)
[2018-04-04 11:54] LABS: Calcium 7.3 mg/dL (8.5-10.1); Potassium 3.7 mmol/L (3.5-5.1)
[2018-04-04 12:00] LABS: Albumin 1.7 g/dL (3.4-5.0); BUN/Creatinine Ratio 22.4; Bilirubin, Total 1.3 mg/dL (0.2-1.0); Total Protein 6.9 g/dL (6.4-8.2)
[2018-04-04 13:00] VITALS: BP 106/71
[2018-04-04 16:32] VITALS: BP 100/64
[2018-04-04] MEDS: MORPHINE SULFATE 4 MG/ML SYR/VIAL IV PRN (18:58)
[2018-04-04] MEDS ORDERED: INFLUENZA QUAD 2018-2019 0.5 ML SYRG IM ONE (20:00)
[2018-04-04] MEDS ORDERED: PNEUMOCOCCAL VACC POLYS 25 MCG/0.5 ML VIAL IM ONE (20:00)
== END 2018-04-04 21:20 | DRG 720 ==
LOC: EDBD 18:01 → ER 18:02 → OVERFLOW 18:03 → DOU IN ICU 03-29 04:08 → TELE-CENTR 03-31 16:54
PROVIDERS: ADMIT Nurse Practitioner; ATTEND Internal Medicine
PROC: 02HV33Z Insertion of Infusion Device into Superior Vena Cava, Percutaneous Approach (ICD-10-PCS; principal; 2018-03-28)
PROC: 30233L1 Transfusion of Nonautologous Fresh Plasma into Peripheral Vein, Percutaneous Approach (ICD-10-PCS; 2018-03-29)
PROC: 30233N1 Transfusion of Nonautologous Red Blood Cells into Peripheral Vein, Percutaneous Approach (ICD-10-PCS; 2018-03-29)
PROC: 30233R1 Transfusion of Nonautologous Platelets into Peripheral Vein, Percutaneous Approach (ICD-10-PCS; 2018-03-29)
PROC: 30233K1 Transfusion of Nonautologous Frozen Plasma into Peripheral Vein, Percutaneous Approach (ICD-10-PCS; 2018-03-29)
PROC: 02HV33Z Insertion of Infusion Device into Superior Vena Cava, Percutaneous Approach (ICD-10-PCS; 2018-03-31)
DX: A41.9 Sepsis, unspecified organism (principal); E43 Unspecified severe protein-calorie malnutrition; D61.818 Other pancytopenia; J90 Pleural effusion, not elsewhere classified; S36.62XA Contusion of rectum, initial encounter; R16.1 Splenomegaly, not elsewhere classified; D62 Acute posthemorrhagic anemia; E88.09 Other disorders of plasma-protein metabolism, not elsewhere classified; L03.115 Cellulitis of right lower limb; L03.116 Cellulitis of left lower limb; M86.60 Other chronic osteomyelitis, unspecified site; J98.11 Atelectasis; S30.1XXA Contusion of abdominal wall, initial encounter; X58.XXXA Exposure to other specified factors, initial encounter; B95.62 Methicillin resistant Staphylococcus aureus infection as the cause of diseases classified elsewhere; G89.29 Other chronic pain; F12.90 Cannabis use, unspecified, uncomplicated; F17.210 Nicotine dependence, cigarettes, uncomplicated; B96.5 Pseudomonas (aeruginosa) (mallei) (pseudomallei) as the cause of diseases classified elsewhere; B96.20 Unspecified Escherichia coli [E. coli] as the cause of diseases classified elsewhere; F15.90 Other stimulant use, unspecified, uncomplicated; I10 Essential (primary) hypertension; Z81.8 Family history of other mental and behavioral disorders; Z90.49 Acquired absence of other specified parts of digestive tract; Z88.2 Allergy status to sulfonamides; Z79.1 Long term (current) use of non-steroidal anti-inflammatories (NSAID); Y93.89 Activity, other specified; Y92.89 Other specified places as the place of occurrence of the external cause; Y99.8 Other external cause status; Z71.51 Drug abuse counseling and surveillance of drug abuser; Z68.33 Body mass index [BMI] 33.0-33.9, adult; Z23 Encounter for immunization
CPT/HCPCS: 36415; 36430; 36556; 36569; 71045; 73700; 74176; 80048; 80053; 80202; 80307; 81001; 82962; 83605; 83690; 83735; 83880; 84100; 84484; 85014; 85018; 85025; 85610; 85730; 86850; 86900; 86901; 86920; 87040; 87077; 87081; 87086; 87186; 87205; 90674; 93005; 93926; 93970; 96361; 96365; 96367; 96375; 97110; 97116; 97163; 97530; A6257; C9113; G0378; J0696; J0713; J2001; J2185; J2405; J2543; J7060

== ENCOUNTER 2018-04-20 00:20 | Emergency (ER) | payer MEDICAID ==
[~2018-04-20] VITALS: Ht 167.6 cm; Wt 77.1 kg
[~2018-04-20 00:20] MED LIST changes: -IMITREX
[2018-04-20 00:51] VITALS: BP 158/87
== END 2018-04-20 05:14 | disposition left against medical advice (07) ==
LOC: ER 00:21
DX: R19.7 Diarrhea, unspecified (principal); Z53.21 Procedure and treatment not carried out due to patient leaving prior to being seen by health care provider

== ENCOUNTER 2019-12-28 07:30 | Inpatient (IN) | payer MEDICAID ==
[~2019-12-28] VITALS: Ht 167.6 cm; Wt 72.6 kg
[2019-12-28] MEDS ORDERED: DOXYCYCLINE 100 MG TAB/CAP PO ONE (09:00)
[2019-12-28] MEDS ORDERED: DexAMETHasone SOD PHOS 10MG/1ML VIAL INJ IV ONE (09:00)
[2019-12-28 09:23] LABS: Basophils # (auto) 0 10 ^3/uL (0-0.2); Eosinophils # (auto) 0 10 ^3/uL (0-0.8); Lymphocytes # (auto) 0.3 10 ^3/uL (0.4-5.4); Mean Corpuscular Volume 96.2 fL (80.0-100.0)
[2019-12-28 09:24] LABS: Basophils % (auto) 0.1 % (0.0-2.0); Eosinophils % (auto) 0.1 % (0.0-7.0); Hemoglobin 14.3 g/dL (12.2-16.2); Lymphocytes % (auto) 10.9 % (10.0-50.0); Mean Corpuscular Hemoglobin 32.8 pg (28.0-32.0); Mean Corpuscular Hgb Conc. 34.2 g/dL (32.0-36.0); Monocytes # (auto) 0.4 10 ^3/uL (0-1.3); Neutrophils % (auto) 74.9 % (37.0-80.0); Nucleated Red Blood Cells % 0.2 %; Red Blood Cells 4.36 10^6/uL (4.0-5.20); Red Cell Distribution Width 14.8 % (11.8-14.3); White Blood Cell 2.7 10^3/uL (4.4-10.8)
[2019-12-28 09:30] LABS: Platelet Count (auto) 38 10^3/uL (140-450)
[2019-12-28 09:41] LABS: Albumin 2.2 g/dL (3.4-5.0); Calcium 7.8 mg/dL (8.5-10.1); Magnesium 2.2 mg/dL (1.6-2.6); Potassium 3.6 mmol/L (3.5-5.1)
[2019-12-28 09:43] LABS: Lactic Acid w/Reflex 3.1 mmol/L (0.4-2.0)
[2019-12-28 09:47] LABS: BUN/Creatinine Ratio 40.7; Bilirubin, Total 1.6 mg/dL (0.2-1.0)
[2019-12-28 09:49] LABS: CRP High Sensitivity 0.28 mg/dL (< 0.3)
[2019-12-28] MEDS ORDERED: ZINC SULFATE 220mg CAP or TAB PO ONE (14:30)
[2019-12-28] MEDS ORDERED: ASCORBIC ACID 500 MG TAB PO ONE (14:30)
[2019-12-28] MEDS ORDERED: ONDANSETRON HCL 4 MG/2 ML VIAL IV PRN (14:45)
[2019-12-28] MEDS ORDERED: MORPHINE SULF INJ 2 MG/ML SYRINGE 1ML IV PRN ×2 (14:45)
[2019-12-28] MEDS ORDERED: NITROGLYCERIN 0.4 MG SL TAB SL PRN (14:45)
[2019-12-28] MEDS ORDERED: HYDROcodone-ACET 5/325MG TAB PO PRN (14:45)
[2019-12-28 15:04] VITALS: BP 123/79
--- NOTE | 2019-12-28 15:37 | NUR ---
ss consult for home oxygen and board and care. Per Leonel RN in ER patient lives with her caregiver. Patient will be admitted. Patient does not need board and care. Patient was diagnosed Covid positive yesterday. I informed Leonel social service will work on home oxygen on discharge and will need a good order with liter flow and NC continuous. Leonel verbalized understanding. Addendum: 12/28/19 at 1540 by Belinda MARTINS Amended: Links added.
[2019-12-28] MEDS ORDERED: ALBUTEROL SULF HFA 90MCG INH 200DOSE IN SCH (22:00)
[2019-12-28] MEDS ORDERED: LINEZOLID 600MG TABLET PO SCH (22:00)
[2019-12-28] MEDS ORDERED: CLINDAMYCIN 600MG IV 50 ML IV SCH (22:00)
--- NOTE | 2019-12-31 08:06 | NUR ---
re-assessment Patient was not admitted and left AMA on 12/28/2019 Addendum: 12/31/19 at 0809 by Belinda MARTINS Amended: Links added.
== END 2019-12-28 17:30 | disposition left against medical advice (07) | DRG 137 ==
LOC: ER 07:30 → TELE 07:31
PROVIDERS: ADMIT Internal Medicine; ATTEND Internal Medicine
DX: U07.1 COVID-19 (principal); E43 Unspecified severe protein-calorie malnutrition; F17.210 Nicotine dependence, cigarettes, uncomplicated; I10 Essential (primary) hypertension; J12.9 Viral pneumonia, unspecified; L03.116 Cellulitis of left lower limb; J96.01 Acute respiratory failure with hypoxia; L03.115 Cellulitis of right lower limb; Z59.0 Homelessness; Z81.8 Family history of other mental and behavioral disorders; Z88.2 Allergy status to sulfonamides; Z68.25 Body mass index [BMI] 25.0-25.9, adult; Z53.29 Procedure and treatment not carried out because of patient's decision for other reasons
CPT/HCPCS: 36415; 71045; 80053; 82728; 83605; 83615; 83735; 83880; 84484; 85025; 86141; 87040; 93005; 99291; G0378; J1100